=== PATIENT | female | born 1955 | race Caucasian/White ===

== ENCOUNTER 2018-03-30 00:23 | Inpatient (IN) | payer MEDICAID, OTHER ==
[2018-03-30 01:40] LABS: ADD MAN DIFF? NO
[2018-03-30] MEDS: LABETALOL HCL 20MG INJ IV (01:41)
[2018-03-30 01:44] LABS: WHITE BLOOD COUNT 5.4 10^3/ul (4.8-10.8)
[2018-03-30 01:44] LABS: BASOPHILS % 0.6 % (0.0-2.0); EOSINOPHILS # 0.3 10^3/ul (0.0-0.5); EOSINOPHILS % 5.2 % (0.0-7.0); HEMATOCRIT 24.6 % (37.0-47.0); HEMOGLOBIN 7.8 g/dl (12.0-16.0); LYMPHOCYTES # 1.2 10^3/ul (0.8-2.9); LYMPHOCYTES % 21.4 % (15.0-51.0); MEAN CORPUSCULAR HEMOGLOBIN 29.3 pg (29.0-33.0); MEAN CORPUSCULAR HGB CONC 31.7 g/dl (32.0-37.0); MEAN CORPUSCULAR VOLUME 92.5 fl (82.0-101.0); MEAN PLATELET VOLUME 10.4 fl (7.4-10.4); MONOCYTE # 0.3 10^3/ul (0.3-0.9); MONOCYTES % 5.2 % (0.0-11.0); NEUTROPHIL # 3.6 10^3/ul (1.6-7.5); NEUTROPHILS % 67.2 % (39.0-77.0); PLATELET COUNT 112 10^3/UL (140-415); RED BLOOD COUNT 2.66 10^6/ul (4.20-5.40); RED CELL DISTRIBUTION WIDTH 13.3 % (11.5-14.5)
[2018-03-30 02:05] LABS: ANION GAP 17 (8-16); BLOOD UREA NITROGEN 92 mg/dl (7-20); CALCIUM 8.4 mg/dl (8.4-10.2); CARBON DIOXIDE 13 mmol/L (21-31); CHLORIDE 113 mmol/L (97-110); GLUCOSE 138 mg/dl (70-220); POTASSIUM 5.9 mmol/L (3.5-5.1); SODIUM 137 mmol/L (135-144)
[2018-03-30 02:18] LABS: TROPONIN-I 0.035 ng/ml (0.000-0.120)
[2018-03-30 02:40] LABS: B-TYPE NATRIURETIC PEPTIDE 63800 PG/ML (0-125)
[2018-03-30] MEDS: hydrALAzine 20 MG INJ IV ×2 (03:21→18:59)
[2018-03-30 04:51] LABS: URINE BLOOD (Dip) POC 1+ (NEGATIVE); URINE KETONES (Dip) POC Negative (NEGATIVE); URINE LEUKOCYTE EST (Dip) POC Negative (NEGATIVE); URINE NITRITE (Dip) POC Negative (NEGATIVE); URINE TOTAL PROTEIN POC 3+ (NEGATIVE)
[2018-03-30] MEDS ORDERED: NACL 0.9% 3 ML SYG IV (05:00)
[2018-03-30] MEDS ORDERED: DOCUSATE SODIUM 100 MG CAP PO (05:00)
[2018-03-30] MEDS ORDERED: ONDANSETRON 4 MG TAB PO (05:00)
[2018-03-30] MEDS ORDERED: ACETAMINOPHEN 325 MG TAB PO (05:00)
[2018-03-30] MEDS ORDERED: BISACODYL (EC) 5 MG TAB PO (05:00)
[2018-03-30] MEDS: FUROSEMIDE 40 MG INJ IV ×3 (05:44→14:19)
[2018-03-30 05:47] LABS: HAAIG REFLEX REFLEX FILED
[2018-03-30] MEDS ORDERED: ONDANSETRON 4 MG INJ (05:47)
[2018-03-30] MEDS: NICARDipine HCL 30 MG CAPSULE PO (05:53)
[2018-03-30] MEDS: HEPARIN 5,000 UNIT/0.5 ML VIAL SC ×3 (05:55→22:00)
[2018-03-30 06:18] LABS: ALANINE AMINOTRANSFERASE 30 IU/L (13-69); ALBUMIN 2.9 g/dl (3.3-4.9); ALBUMIN/GLOBULIN RATIO 0.87; ALKALINE PHOSPHATASE 144 IU/L (42-121); ANION GAP 19 (8-16); ASPARTATE AMINO TRANSFERASE 32 IU/L (15-46); BILIRUBIN,INDIRECT 0.1 mg/dl (0-1.1); BILIRUBIN,TOTAL 0.1 mg/dl (0.2-1.3); BLOOD UREA NITROGEN 93 mg/dl (7-20); CALCIUM 8.5 mg/dl (8.4-10.2); CARBON DIOXIDE 13 mmol/L (21-31); CHLORIDE 113 mmol/L (97-110); CREATININE 9.02 mg/dl (0.44-1.00); GLUCOSE 171 mg/dl (70-220); SODIUM 139 mmol/L (135-144); TOTAL PROTEIN 6.2 g/dl (6.1-8.1)
[2018-03-30 06:40] LABS: CHOLESTEROL 97 mg/dl (100-200)
[2018-03-30 06:40] LABS: CHOL/HDL RATIO 2.6 RATIO; HDL CHOLESTEROL 36 mg/dl (35-98); IRON 49 ug/dl (35-150); LDL CHOLESTEROL,CALCULATED 47 mg/dl; TRIGLYCERIDES 70 mg/dl (0-149)
[2018-03-30 06:44] LABS: HEMOGLOBIN A1C 5.5 % (0-5.9)
[2018-03-30 06:44] LABS: OSMOLALITY 319 mOsm/kg (280-295)
[2018-03-30 06:47] LABS: HEPATITIS B SURFACE ANTIGEN NEGATIVE (NEGATIVE)
[2018-03-30 06:50] LABS: % IRON SATURATION 18 % SAT (22-52); TOTAL IRON BINDING CAPACITY 273 ug/dl (241-421)
[2018-03-30] MEDS ORDERED: GLUCOSE GEL 15 GRAM TUBE BUCCAL (07:00)
[2018-03-30] MEDS ORDERED: GLUCAGON 1 MG INJ IM (07:00)
[2018-03-30] MEDS ORDERED: GLUCOSE GEL 15 GRAM TUBE PO ×2 (07:00)
[2018-03-30] MEDS ORDERED: DEXTROSE 50% 50 ML SYRINGE IV ×2 (07:00)
[2018-03-30 07:04] LABS: HEPATITIS B SURFACE ANTIBODY NEGATIVE (NEGATIVE)
[2018-03-30 07:05] LABS: HEPATITIS B CORE ANTIBODY NEGATIVE (NEGATIVE); HEPATITIS C VIRAL ANTIBODY NEGATIVE (NEGATIVE)
[2018-03-30 07:24] LABS: PHOSPHORUS 7.2 mg/dl (2.5-4.9)
[2018-03-30] MEDS: INSULIN ASPART [NOVOLOG] 3 ML PEN SC ×4 (08:06→21:00)
[2018-03-30 08:25] LABS: CREATINE KINASE 195 IU/L (23-200)
[2018-03-30 08:36] LABS: CK INDEX 2.5; CK-MB 4.96 ng/ml (0.0-2.4); TROPONIN-I 0.043 ng/ml (0.000-0.120)
[2018-03-30] MEDS: LABETALOL 100 MG TAB PO ×2 (12:29→22:06)
[2018-03-30 14:07] LABS: HEPATITIS B SURFACE ANTIGEN NEGATIVE (NEGATIVE)
[2018-03-30] MEDS: NA POLYST SULFON 15 GM/60 ML BTL PO (14:19)
[2018-03-30] MEDS: NIFEdipine (XL) 30 MG TAB PO ×2 (14:19→22:06)
[2018-03-30] MEDS: NA BICARBONATE 8.4% 50 ML SYG IV ×2 (14:32→17:19)
[2018-03-30 17:18] LABS: ANION GAP 18 (8-16); BLOOD UREA NITROGEN 96 mg/dl (7-20); CALCIUM 8.6 mg/dl (8.4-10.2); CARBON DIOXIDE 14 mmol/L (21-31); CHLORIDE 112 mmol/L (97-110); CREATININE 8.93 mg/dl (0.44-1.00); GLUCOSE 118 mg/dl (70-220); POTASSIUM 5.5 mmol/L (3.5-5.1); SODIUM 138 mmol/L (135-144)
[2018-03-30] MEDS: SOD FERRIC GLUC COMPLX 125 MG in SOD CHLORIDE 0.9% 100 ML IVPB (17:26)
[2018-03-30] MEDS: EPOETIN 10000 UNITS/1 ML INJ (ESRD) SC (17:31)
[2018-03-30] MEDS: ACCU-CHEK XX (22:15)
[2018-03-31 01:12] LABS: CREATINE KINASE 187 IU/L (23-200)
[2018-03-31 01:24] LABS: CK INDEX 2.5; CK-MB 4.76 ng/ml (0.0-2.4); TROPONIN-I 0.044 ng/ml (0.000-0.120)
[2018-03-31] MEDS: HEPARIN 5,000 UNIT/0.5 ML VIAL SC ×3 (04:36→23:09)
[2018-03-31 05:43] LABS: ADD MAN DIFF? NO
[2018-03-31 05:50] LABS: WHITE BLOOD COUNT 4.8 10^3/ul (4.8-10.8)
[2018-03-31 05:50] LABS: BASOPHILS % 0.8 % (0.0-2.0); EOSINOPHILS # 0.2 10^3/ul (0.0-0.5); EOSINOPHILS % 3.1 % (0.0-7.0); HEMATOCRIT 21.7 % (37.0-47.0); LYMPHOCYTES # 1.3 10^3/ul (0.8-2.9); LYMPHOCYTES % 26.4 % (15.0-51.0); MEAN CORPUSCULAR HEMOGLOBIN 29.5 pg (29.0-33.0); MEAN CORPUSCULAR HGB CONC 32.3 g/dl (32.0-37.0); MEAN CORPUSCULAR VOLUME 91.6 fl (82.0-101.0); MEAN PLATELET VOLUME 10.5 fl (7.4-10.4); MONOCYTE # 0.3 10^3/ul (0.3-0.9); MONOCYTES % 6.3 % (0.0-11.0); PLATELET COUNT 131 10^3/UL (140-415); RED BLOOD COUNT 2.37 10^6/ul (4.20-5.40); RED CELL DISTRIBUTION WIDTH 13.6 % (11.5-14.5)
[2018-03-31 06:09] LABS: MAGNESIUM 1.7 mg/dl (1.7-2.5)
[2018-03-31 06:11] LABS: PHOSPHORUS 7.6 mg/dl (2.5-4.9)
[2018-03-31 06:13] LABS: ALANINE AMINOTRANSFERASE 36 IU/L (13-69); ALBUMIN 2.5 g/dl (3.3-4.9); ALBUMIN/GLOBULIN RATIO 0.86; ALKALINE PHOSPHATASE 129 IU/L (42-121); ANION GAP 19 (8-16); ASPARTATE AMINO TRANSFERASE 31 IU/L (15-46); BILIRUBIN,INDIRECT 0.1 mg/dl (0-1.1); BILIRUBIN,TOTAL 0.1 mg/dl (0.2-1.3); BLOOD UREA NITROGEN 101 mg/dl (7-20); CALCIUM 8.4 mg/dl (8.4-10.2); CARBON DIOXIDE 14 mmol/L (21-31); CHLORIDE 112 mmol/L (97-110); CREATININE 9.06 mg/dl (0.44-1.00); GLUCOSE 108 mg/dl (70-220); POTASSIUM 5.3 mmol/L (3.5-5.1); SODIUM 140 mmol/L (135-144); TOTAL PROTEIN 5.4 g/dl (6.1-8.1)
[2018-03-31] MEDS ORDERED: HEPARIN 1000 UNITS/ML 10 ML INJ (07:45)
[2018-03-31] MEDS ORDERED: HEPARIN 1000 UNITS/NS (A-LINE) 1,000 ML (07:45)
[2018-03-31] MEDS ORDERED: LIDOCAINE 1% (MDV) 20 ML INJ (07:45)
[2018-03-31] MEDS ORDERED: SOD CHLORIDE 0.9% 500 ML (07:45)
[2018-03-31] MEDS: INSULIN ASPART [NOVOLOG] 3 ML PEN SC ×4 (08:00→20:39)
[2018-03-31] MEDS: NA BICARBONATE 8.4% 50 ML SYG IV ×2 (08:40→12:50)
[2018-03-31] MEDS: NIFEdipine (XL) 30 MG TAB PO ×2 (09:20→20:36)
[2018-03-31] MEDS: LABETALOL 100 MG TAB PO ×2 (09:20→20:36)
[2018-03-31] MEDS: CALCIUM ACETATE 667 MG CAP PO ×2 (12:50→17:20)
[2018-03-31] MEDS: SOD FERRIC GLUC COMPLX 125 MG in SOD CHLORIDE 0.9% 100 ML IVPB (17:16)
[2018-03-31 19:06] LABS: PTH CALCIUM 8.2 mg/dL (8.6-10.4)
[2018-03-31 23:14] LABS: SODIUM,URINE RANDOM 30 mmol/L (30-90)
[2018-03-31 23:18] LABS: OSMOLALITY,URINE 351 mOsm/kg (250-1200)
[2018-03-31 23:18] LABS: CREATININE,URINE RANDOM 98.76 mg/dl (20-320)
[2018-03-31 23:58] LABS: PROTEIN/CREAT RATIO 6.07 RATIO
[2018-04-01] MEDS: ACCU-CHEK XX (02:00)
[2018-04-01] MEDS: HEPARIN 5,000 UNIT/0.5 ML VIAL SC ×3 (05:58→22:13)
[2018-04-01 06:11] LABS: ADD MAN DIFF? NO
[2018-04-01 06:13] LABS: BASOPHIL # 0.1 10^3/ul (0.0-0.1); BASOPHILS % 0.9 % (0.0-2.0); EOSINOPHILS # 0.2 10^3/ul (0.0-0.5); EOSINOPHILS % 3.8 % (0.0-7.0); HEMATOCRIT 21.7 % (37.0-47.0); LYMPHOCYTES # 1.5 10^3/ul (0.8-2.9); LYMPHOCYTES % 27.9 % (15.0-51.0); MEAN CORPUSCULAR HEMOGLOBIN 29.7 pg (29.0-33.0); MEAN CORPUSCULAR HGB CONC 32.3 g/dl (32.0-37.0); MEAN CORPUSCULAR VOLUME 91.9 fl (82.0-101.0); MEAN PLATELET VOLUME 10.7 fl (7.4-10.4); MONOCYTE # 0.4 10^3/ul (0.3-0.9); MONOCYTES % 7.2 % (0.0-11.0); NEUTROPHIL # 3.2 10^3/ul (1.6-7.5); NEUTROPHILS % 59.8 % (39.0-77.0); PLATELET COUNT 135 10^3/UL (140-415); RED BLOOD COUNT 2.36 10^6/ul (4.20-5.40); RED CELL DISTRIBUTION WIDTH 13.7 % (11.5-14.5)
[2018-04-01 06:13] LABS: WHITE BLOOD COUNT 5.3 10^3/ul (4.8-10.8)
[2018-04-01 06:35] LABS: ANION GAP 17 (8-16); BLOOD UREA NITROGEN 96 mg/dl (7-20); CALCIUM 8.4 mg/dl (8.4-10.2); CARBON DIOXIDE 16 mmol/L (21-31); CHLORIDE 111 mmol/L (97-110); CREATININE 9.76 mg/dl (0.44-1.00); GLUCOSE 127 mg/dl (70-220); POTASSIUM 4.7 mmol/L (3.5-5.1); SODIUM 139 mmol/L (135-144)
[2018-04-01] MEDS: NIFEdipine (XL) 30 MG TAB PO ×2 (08:22→21:17)
[2018-04-01] MEDS: CALCIUM ACETATE 667 MG CAP PO ×3 (08:23→17:23)
[2018-04-01] MEDS: LABETALOL 100 MG TAB PO (08:23)
[2018-04-01] MEDS: INSULIN ASPART [NOVOLOG] 3 ML PEN SC ×4 (08:25→21:00)
[2018-04-01] MEDS: hydrALAzine 20 MG INJ IV (15:15)
[2018-04-01 16:17] LABS: OCCULT BLOOD STOOL NEGATIVE (NEGATIVE)
[2018-04-01] MEDS: SOD CHLORIDE 0.9% 250 ML IV* (17:25)
[2018-04-01] MEDS: EPOETIN 10000 UNITS/1 ML INJ (ESRD) SC (17:25)
[2018-04-01] MEDS: SOD FERRIC GLUC COMPLX 125 MG in SOD CHLORIDE 0.9% 100 ML IVPB (21:14)
[2018-04-01] MEDS: LABETALOL 200 MG TAB PO (21:18)
[2018-04-02] MEDS: ACCU-CHEK XX (02:00)
[2018-04-02] MEDS: HEPARIN 5,000 UNIT/0.5 ML VIAL SC ×3 (06:11→21:56)
[2018-04-02] MEDS: INSULIN ASPART [NOVOLOG] 3 ML PEN SC ×4 (07:29→20:41)
[2018-04-02] MEDS: CALCIUM ACETATE 667 MG CAP PO ×3 (08:47→16:55)
[2018-04-02] MEDS: LABETALOL 200 MG TAB PO ×2 (08:47→20:40)
[2018-04-02] MEDS: NIFEdipine (XL) 30 MG TAB PO ×2 (08:48→20:41)
[2018-04-02 11:02] LABS: ADD MAN DIFF? NO
[2018-04-02 11:05] LABS: WHITE BLOOD COUNT 6.6 10^3/ul (4.8-10.8)
[2018-04-02 11:05] LABS: BASOPHILS % 0.5 % (0.0-2.0); EOSINOPHILS # 0.2 10^3/ul (0.0-0.5); EOSINOPHILS % 2.6 % (0.0-7.0); HEMATOCRIT 26.4 % (37.0-47.0); HEMOGLOBIN 8.6 g/dl (12.0-16.0); LYMPHOCYTES # 1.1 10^3/ul (0.8-2.9); LYMPHOCYTES % 17.3 % (15.0-51.0); MEAN CORPUSCULAR HEMOGLOBIN 30.2 pg (29.0-33.0); MEAN CORPUSCULAR HGB CONC 32.6 g/dl (32.0-37.0); MEAN CORPUSCULAR VOLUME 92.6 fl (82.0-101.0); MEAN PLATELET VOLUME 9.9 fl (7.4-10.4); MONOCYTE # 0.4 10^3/ul (0.3-0.9); MONOCYTES % 6.4 % (0.0-11.0); NEUTROPHIL # 4.7 10^3/ul (1.6-7.5); NEUTROPHILS % 72.1 % (39.0-77.0); PLATELET COUNT 127 10^3/UL (140-415); RED BLOOD COUNT 2.85 10^6/ul (4.20-5.40); RED CELL DISTRIBUTION WIDTH 13.5 % (11.5-14.5)
[2018-04-02 11:27] LABS: ALANINE AMINOTRANSFERASE 24 IU/L (13-69); ALBUMIN 2.5 g/dl (3.3-4.9); ALBUMIN/GLOBULIN RATIO 0.83; ALKALINE PHOSPHATASE 110 IU/L (42-121); ANION GAP 16 (8-16); ASPARTATE AMINO TRANSFERASE 20 IU/L (15-46); BILIRUBIN,INDIRECT 0.1 mg/dl (0-1.1); BILIRUBIN,TOTAL 0.1 mg/dl (0.2-1.3); BLOOD UREA NITROGEN 95 mg/dl (7-20); CALCIUM 8.4 mg/dl (8.4-10.2); CARBON DIOXIDE 17 mmol/L (21-31); CHLORIDE 109 mmol/L (97-110); CREATININE 9.75 mg/dl (0.44-1.00); GLUCOSE 141 mg/dl (70-220); SODIUM 137 mmol/L (135-144); TOTAL PROTEIN 5.5 g/dl (6.1-8.1)
[2018-04-02 11:32] LABS: INR 1.47; PROTIME 18.1 Sec (11.9-14.9); PT RATIO 1.4
[2018-04-02 11:33] LABS: PARTIAL THROMBOPLASTIN TIME 58.4 Sec (23.0-35.0)
[2018-04-02] MEDS: LISINOPRIL 10 MG TAB PO (11:35)
[2018-04-02 13:08] LABS: IMMEDIATE SPIN CROSSMATCH 1 2
[2018-04-02] MEDS: SOD FERRIC GLUC COMPLX 125 MG in SOD CHLORIDE 0.9% 100 ML IVPB (16:55)
[2018-04-03] MEDS: ACCU-CHEK XX (02:00)
[2018-04-03 02:32] LABS: OCCULT BLOOD STOOL NEGATIVE (NEGATIVE)
[2018-04-03 05:42] LABS: ADD MAN DIFF? NO
[2018-04-03 05:57] LABS: WHITE BLOOD COUNT 7.7 10^3/ul (4.8-10.8)
[2018-04-03 05:57] LABS: BASOPHILS % 0.5 % (0.0-2.0); EOSINOPHILS # 0.2 10^3/ul (0.0-0.5); EOSINOPHILS % 2.9 % (0.0-7.0); HEMOGLOBIN 9.8 g/dl (12.0-16.0); LYMPHOCYTES # 1.3 10^3/ul (0.8-2.9); LYMPHOCYTES % 16.3 % (15.0-51.0); MEAN CORPUSCULAR HEMOGLOBIN 30.1 pg (29.0-33.0); MEAN CORPUSCULAR HGB CONC 32.7 g/dl (32.0-37.0); MEAN PLATELET VOLUME 10.9 fl (7.4-10.4); MONOCYTE # 0.6 10^3/ul (0.3-0.9); MONOCYTES % 7.2 % (0.0-11.0); NEUTROPHIL # 5.6 10^3/ul (1.6-7.5); NEUTROPHILS % 72.1 % (39.0-77.0); NUCLEATED RED BLOOD CELLS% 0.3 /100WBC (0.0-0.0); PLATELET COUNT 135 10^3/UL (140-415); RED BLOOD COUNT 3.26 10^6/ul (4.20-5.40)
[2018-04-03] MEDS: HEPARIN 5,000 UNIT/0.5 ML VIAL SC ×2 (06:00→14:54)
[2018-04-03 06:27] LABS: ANION GAP 18 (8-16); BLOOD UREA NITROGEN 91 mg/dl (7-20); CALCIUM 8.4 mg/dl (8.4-10.2); CARBON DIOXIDE 16 mmol/L (21-31); CHLORIDE 112 mmol/L (97-110); CREATININE 9.54 mg/dl (0.44-1.00); GLUCOSE 132 mg/dl (70-220); POTASSIUM 5.8 mmol/L (3.5-5.1); SODIUM 140 mmol/L (135-144)
[2018-04-03] MEDS: INSULIN ASPART [NOVOLOG] 3 ML PEN SC ×2 (08:00→12:17)
[2018-04-03] MEDS: CALCIUM ACETATE 667 MG CAP PO ×2 (08:11→11:53)
[2018-04-03] MEDS: LABETALOL 200 MG TAB PO (08:12)
[2018-04-03] MEDS: NIFEdipine (XL) 30 MG TAB PO (08:13)
[2018-04-03] MEDS: NA BICARBONATE 650 MG TAB PO (10:05)
[2018-04-03] MEDS: NA POLYST SULFON 15 GM/60 ML BTL PO (10:05)
[2018-04-03] MEDS: FUROSEMIDE 40 MG INJ IV (10:07)
[2018-04-03] MEDS: hydrALAzine 20 MG INJ IV (11:54)
[2018-04-04 08:31] LABS: PTH INTACT 146 pg/mL (14-64)
== END 2018-04-03 15:40 | disposition home or self-care (01) | DRG 683 ==
LOC: E/R 00:23 → 6WM 04:17
PROC: 30233N1 Transfusion of Nonautologous Red Blood Cells into Peripheral Vein, Percutaneous Approach (ICD-10-PCS; principal; 2018-04-01)
DX: I12.0 Hypertensive chronic kidney disease with stage 5 chronic kidney disease or end stage renal disease (principal); N17.9 Acute kidney failure, unspecified; E87.2 Acidosis; N18.5 Chronic kidney disease, stage 5; E11.22 Type 2 diabetes mellitus with diabetic chronic kidney disease; I16.0 Hypertensive urgency; E87.5 Hyperkalemia; D64.9 Anemia, unspecified; E87.70 Fluid overload, unspecified; D69.6 Thrombocytopenia, unspecified
CPT/HCPCS: 36415; 36430; 71045; 76775; 80048; 80053; 80061; 81003; 82270; 82550; 82553; 82570; 82728; 82962; 83036; 83540; 83735; 83880; 83930; 83935; 83970; 84100; 84300; 84443; 84484; 85025; 85610; 85730; 86320; 86325; 86644; 86704; 86706; 86708; 86709; 86803; 86850; 86900; 86901; 86920; 87340; 93005; 93306; 96374; 96375; 99291-25